=== PATIENT | male | born 1970 | race Caucasian/White ===

== ENCOUNTER 2022-01-03 18:12 | Emergency (ER) | payer BC, SELFPAY ==
--- NOTE | ~2022-01-03 | XR_ITS ---
EXAMINATION: XR hand RT min 3V DATE: 01/03/2022 18:56 INDICATION: Right hand injury. TECHNIQUE: 3 views of right hand were obtained. COMPARISON: None. FINDINGS: Bone alignment is normal. There is a stellate fracture of tuft of second distal phalanx. 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 IMPRESSION: 1. Stellate fracture of tuft of second distal phalanx. Reviewed, dictated and finalized at location A.
[2022-01-03 18:35] VITALS: BP 140/92; PULSE 62; RESP 20; TEMP 36.6; O2SAT 98
--- NOTE | 2022-01-03 19:31 | ED.UPPEXIN ---
HPI - Extremity Injury (Upper) General Chief Complaint: Extremity Injury, Upper Stated Complaint: R. index finger injury Time Seen by Provider: 01/03/22 19:01 History of Present Illness HPI narrative: This is a 51-year-old male who denies past medical history, presenting the emergency department complaining of right distal finger pain after a steel grater fell on his hand. He states this happened around noon today. He describes the pain as sharp, 4 out of 10, not radiating. He denies head injury and has no other complaints today. Related Data Allergies Allergy/AdvReac Type Severity Reaction Status Date / Time Penicillins AdvReac Rash Verified 01/03/22 18:42 Review of Systems Review of Systems: CONSTITUTIONAL: Denies fever, chills, or sweats. CARDIOVASCULAR: Denies chest pain, palpitations, or edema. RESPIRATORY: Denies cough or dyspnea. GASTROINTESTINAL: Denies abdominal pain, nausea, vomiting, or diarrhea. SKIN: Denies rash or itching. MUSCULOSKELETAL: Right distal second finger pain, denies back pain, joint pain, or myalgia. NEUROLOGIC: Denies headache, numbness, dizziness, or weakness. PSYCHIATRIC: Denies anxiety or depression. [facility] Social History Social History (Updated 01/03/22 @ 19:59 by Oswaldo Andrew MD) Smoking status: Never smoker Alcohol intake: current Substance use: never Exam Narrative: GENERAL: Well-developed, well-nourished, and in no acute distress. HEAD: Normocephalic, atraumatic. EYES: PERRLA and EOMI. ENT: Nares clear, no rhinorrhea or epistaxis. Mucous membranes moist. Oropharynx without tonsillar hypertrophy exudate or other lesions. NECK: Supple. No adenopathy or masses. No carotid bruits or JVD CHEST: Clear to auscultation. No respiratory distress. No wheezes rales or rhonchi HEART: Regular rate and rhythm. No murmur heard. Normal peripheral pulses. ABDOMEN: Soft, nontender, nondistended, normal active bowel sounds. EXTREMITIES: Small subungual ecchymosis noted of the distal right second finger, nailbed intact, small ecchymosis noted to the distal aspect of the right finger, flexion intact though limited by pain. Sensation intact. No noted laceration. normal range of motion. No edema. SKIN: Warm, dry, no rash. NEURO: No focal deficits. Alert and oriented x3. PSYCH: Normal mood and affect. Course Course Emergency Course: 19:33 - X-ray demonstrates a mildly displaced tuft fracture of the second digit. Will place patient in a finger splint and have him follow-up with primary care and orthopedic surgery. Discussed return emergency precautions including signs and symptoms of neurovascular compromise. Patient voiced understanding is comfortable to plan. All questions answered to his satisfaction. Vital Signs Vital signs: Vital Signs Temperature 97.8 F 01/03/22 18:35 Pulse Rate 62 01/03/22 18:35 Respiratory Rate 20 01/03/22 18:35 Blood Pressure 140/92 H 01/03/22 18:35 Pulse Oximetry 98 01/03/22 18:35 Oxygen Delivery Room Air 01/03/22 18:35 Temperature 97.8 F 01/03/22 18:35 Pulse Rate 62 01/03/22 18:35 Respiratory Rate 20 01/03/22 18:35 Blood Pressure 140/92 H 01/03/22 18:35 Pulse Oximetry 98 01/03/22 18:35 Oxygen Delivery Room Air 01/03/22 18:35 Discharge Plan Discharge Clinical Impression: Closed fracture of tuft of distal phalanx of finger, Finger pain, right Patient Disposition: Home, Self-Care Condition: Stable Instructions: Antibiotic Form, Finger Fracture (ED) Additional Instructions: You were seen in the emergency department. Your x-ray is consistent with a tuft fracture of the finger. I recommend splinting and following up with a hand surgeon. If you should obtain develop severe finger pain, the finger appears blue or cold, you develop fevers or if you have other emergent concerns for life, limb, or eyesight, return to the emergency department. Patient Language: Romanian Prescriptions: New acetamino
[2022-01-03] MEDS: ACETAMINOPHEN 500 MG TABLET 1000 MG PO (19:40)
== END 2022-01-03 19:43 | disposition home or self-care (01) ==
PROVIDERS: Emergency Provider Preventive Medicine Aerospace Medicine; PCP Family Medicine Sports Medicine
DX: S62.630A Displaced fracture of distal phalanx of right index finger, initial encounter for closed fracture (principal); W20.8XXA Other cause of strike by thrown, projected or falling object, initial encounter
CPT/HCPCS: 29130; 73130; 99284; A9270

== ENCOUNTER 2024-03-13 08:40 | Emergency (ER) | payer BC, SELFPAY ==
[2024-03-13 09:18] VITALS: BP 141/79; PULSE 61; RESP 16; TEMP 36.9; O2SAT 98
== END 2024-03-13 10:58 | disposition left against medical advice (07) ==
PROVIDERS: PCP Family Medicine Sports Medicine
DX: S61.411A Laceration without foreign body of right hand, initial encounter (principal); W27.0XXA Contact with workbench tool, initial encounter
CPT/HCPCS: 99199

== ENCOUNTER 2024-03-13 09:53 | Emergency (ER) | payer BC, SELFPAY ==
[2024-03-13 10:07] VITALS: BP 153/94; PULSE 62; RESP 16; TEMP 36.3; O2SAT 99
--- NOTE | 2024-03-13 10:18 | ED_ITS ---
HPI - Wound/Laceration General Chief Complaint: Wound/Laceration Stated Complaint: Stitches Removal Source: patient, RN notes reviewed and old records reviewed Mode of arrival: ambulatory Limitations: no limitations History of Present Illness HPI narrative: Patient presents with complaints of laceration to palmar aspect of the right hand. Injury happened just prior to arrival. Patient was using a drill, laceration happened as he was changing the bit. Bleeding is controlled on arrival, last tetanus less than 5 years ago. Denies other injury and trauma. Neurovascular status intact Related Data Home Medications ?Medication ?Instructions ?Recorded ?Confirmed ?Last Taken ?Type allopurinol 300 mg tablet 300 mg PO .QD 03/13/24 03/13/24 Unknown History fenofibrate nanocrystallized 145 145 mg PO .QD 03/13/24 03/13/24 Unknown History mg tablet losartan 50 mg tablet 50 mg PO .QD 03/13/24 03/13/24 Unknown History metoprolol succinate 100 mg 100 mg PO .QD 03/13/24 03/13/24 Unknown History tablet,extended release 24 hr Allergies Allergy/AdvReac Type Severity Reaction Status Date / Time Penicillins AdvReac Rash Verified 03/13/24 10:10 Review of Systems Review of Systems: All systems reviewed & are unremarkable except as noted in HPI and below Constitutional: Constitutional: Reports no additional constitutional complaints ENT: Reports system reviewed and no additional complaints, except as documented Cardiovascular: Cardiovascular: Reports no additional cardiovascular comp laints Respiratory: Respiratory: Reports no additional respiratory complaints Gastrointestinal: Gastrointestinal: Reports no additional gastrointestinal complaints Integumentary/Breasts: Skin/Breast: Reports wounds (Palm of right hand) COUNT INCLUDES THE [facility] Social History Social History Smoking status: Never smoker Alcohol intake: current Substance use: never Comments At the time of my signature, I reviewed and agree with the nursing past medical, surgical, social, and family history. There is no relevant family history pertinent to the patient complaint. Exam Const: General: cooperative, no acute distress, alert and awake Orientatio n/consciousness: oriented to person, oriented to place and oriented to time HENMT: Head: normal to inspection Resp: Effort & Inspection: normal respiratory effort and able to speak in complete sentences Auscultation: clear to auscultation bilaterally, no crackles, no rales, no rhonchi and no wheezes Cardio: Palpation: normal PMI Rate: regular rate Rhythm: regular rhythm Heart sounds: S1 normal heart sound present and S2 normal heart sound present Skin: Wounds: wounds noted flap right palmar hand size (2.5) Neuro: General: oriented to person, oriented to place and oriented to time Cranial nerves: Yes CN's II-XII intact bilaterally Psych: Appearance: grossly normal Thought process: Normal thought process present Insight: Good insight present (Psych) Judgement: Good judgement present (Psych) Course Course Level of Care: Express Care Visit Vital Signs Vital signs: Vital Signs Temperature 97.3 F L 03/13/24 10:07 Pulse Rate 62 03/13/24 10:07 Respiratory Rate 16 03/13/24 10:07 Blood Pressure 153/94 H 03/13/24 10:07 Pulse Oximetry 99 03/13/24 10:07 Oxygen Delivery Room Air 03/13/24 10:07 Temperature 97.3 F L 03/13/24 10:07 Pulse Rate 62 03/13/24 10:07 Respiratory Rate 16 03/13/24 10:07 Blood Pressure 153/94 H 03/13/24 10:07 Pulse Oximetry 99 03/13/24 10:07 Oxygen Delivery Room Air 03/13/24 10:07 Reviewed Procedures Laceration Laceration 1: Date: 03/13/24 Time: 10:40 Site: hand (Right palmar) Size (cm): 2.5 Description: flap Depth: simple, single layer Local Anesthetic: lidocaine 1% Amount of anesthesia used (mL): 8 Pre-repair: irrigated extensively ====== Skin Level ====== Skin layer closed with: nylon Size (cm): 4-0 Number of sutures: 8 Technique: simple, interrupted ====== Subcutaneous Layer ====== ====== Muscle Layer ====== ====== Tendon Layer ====== MDM - Wound/Laceration MDM Narrative Medical decision making narrative: Wound to right palm, base of thumb. Neurovascular status intact. Repaired easily with 7 interrupted sutures. Tetanus less than 5 years old. Doxycycline prophylaxis Discharge instructions reviewed with patient, as well as provided in writing per nursing staff. The instructions also include specific and strict return/GO TO THE ER as well as f/u information. All questions have been answered, and the patient deny any further questions with discharge and discharge plan. Some parts of this dictation were generated by voice recognition software and may contain typographical and/or grammatical inaccuracies. Differential Diagnosis Differential diagnosis: Likely laceration, abrasion and avulsion of skin Medical Records Attestation: I reviewed the patient's medical records. Discharge Plan Discharge Clinical Impression: Laceration Patient Disposition: Home, Self-Care Condition: Stable Instructions: Antibiotic Form, Care For Your Stitches (ED) Additional Instructions: Take medications as prescribed. Follow-up with primary care provider. You have 7 stitches that need to be removed in 7-10 days Patient Language: Armenian Prescriptions: New doxycycline hyclate 100 mg capsule 100 mg PO BID Qty: 14 0RF No Action losartan 50 mg tablet 50 mg PO .QD metoprolol succinate 100 mg tablet extended release 24 hr 100 mg PO .QD allopurinol 300 mg tablet 300 mg PO .QD fenofibrate nanocrystallized 145 mg tablet 145 mg PO .QD acetaminophen 500 mg capsule 1,000 mg PO Q8H PRN (Reason: fever or pain) Qty: 60 0RF Follow-up/Referrals: Haley,Zurdo Christina MD [Primary Care Provider] - 1 Week Time of Disposition: 11:12
[2024-03-13] MEDS: LIDOCAINE 1% LOCAL INJ 2 ML AMPUL 8 ML INFILTRATE (10:51)
== END 2024-03-13 11:35 | disposition home or self-care (01) ==
PROVIDERS: Emergency Provider Nurse Practitioner Family; PCP Family Medicine Sports Medicine
DX: S61.411A Laceration without foreign body of right hand, initial encounter (principal); W29.8XXA Contact with other powered hand tools and household machinery, initial encounter; E78.00 Pure hypercholesterolemia, unspecified; I10 Essential (primary) hypertension
CPT/HCPCS: 12001; 99213; G0463; J2003